=== PATIENT | female | born 1965 | race Caucasian/White ===

== ENCOUNTER 2016-11-27 20:03 | Inpatient (IN) | payer MEDICAID ==
[~2016-11-27] VITALS: Ht 154.9 cm; Wt 80.4 kg
[2016-11-27] MEDS ORDERED: SODIUM CHLORIDE 0.9% 1,000ML IVBOLUS ONE (20:30)
[2016-11-27] MEDS ORDERED: SODIUM CHLORIDE FLUSH 10ML SYR IVF ONE (20:30)
[2016-11-27] MEDS ORDERED: ONDANSETRON 2MG/ML, 2ML IVPush ONE (20:30)
[2016-11-27 20:44] LABS: HEMOGLOBIN 12.6 g/dL (11.7-16.4)
[2016-11-27] MEDS ORDERED: ONDANSETRON 2MG/ML, 2ML ONE (20:50)
[2016-11-27 20:53] LABS: BLOOD UREA NITROGEN 11 mg/dL (7-18)
[2016-11-27 20:57] LABS: ASPARTATE AMINO TRANSFERASE 15 U/L (15-37)
[2016-11-27] MEDS ORDERED: POTASSIUM CHLORIDE 20 MEQ TAB.ER.PRT ONE (21:23)
[2016-11-27] MEDS ORDERED: POTASSIUM CHLORIDE 20 MEQ TAB.ER.PRT PO ONE (21:30)
[2016-11-27] MEDS ORDERED: CEFTRIAXONE PMX 1GM/50ML 50 ML ONE (23:00)
[2016-11-27] MEDS ORDERED: CEFTRIAXONE PMX 1GM/50ML 50 ML IV ONE (23:00)
[2016-11-28] MEDS ORDERED: PHENAZOPYRIDINE 200 MG TABLET PO PRN (00:30)
[2016-11-28] MEDS ORDERED: HYDROcodone/APAP 5/325 TABLET PO PRN (00:30)
[2016-11-28] MEDS ORDERED: ONDANSETRON 2MG/ML, 2ML IVP PRN (00:30)
[2016-11-28] MEDS ORDERED: DOCUSATE 100 MG CAPSULE PO PRN (00:30)
[2016-11-28] MEDS ORDERED: POLYETHYLENE GLYCOL 17 GM PACKET PO PRN (00:30)
[2016-11-28] MEDS ORDERED: MORPHINE SULFATE 4 MG/ML, 1ML IVPush PRN (00:30)
[2016-11-28] MEDS ORDERED: ZOLPIDEM 5MG TABLET PO PRN (00:30)
[2016-11-28] MEDS ORDERED: BISACODYL 10 MG SUPP PR PRN (00:30)
[2016-11-28 01:00] VITALS: BP 103/71
[2016-11-28] MEDS: NS + 20MEQ KCL 1,000 ML IV SCH ×3 (01:38→17:14)
[2016-11-28] MEDS: ACETAMINOPHEN 325 MG TABLET PO PRN ×2 (01:56→17:17)
[2016-11-28 04:21] VITALS: BP 98/66
[2016-11-28 06:29] VITALS: BP 106/72
[2016-11-28 06:35] LABS: BLOOD UREA NITROGEN 12 mg/dL (7-18)
[2016-11-28 06:40] LABS: HEMOGLOBIN 10.6 g/dL (11.7-16.4)
[2016-11-28] MEDS: ENOXAPARIN 40 MG/0.4 ML SQ SCH (08:00)
[2016-11-28] MEDS: NICOTINE 21 MG/24 HR PATCH.TD24 TD SCH (08:01)
[2016-11-28 15:30] VITALS: BP 104/66
[2016-11-28 18:34] VITALS: BP 119/77
[2016-11-28] MEDS: CEFTRIAXONE PMX 1GM/50ML 50 ML IV SCH (22:41)
[2016-11-29] MEDS: NS + 20MEQ KCL 1,000 ML IV SCH (01:45)
[2016-11-29 03:05] VITALS: BP 123/83
[2016-11-29] MEDS: ACETAMINOPHEN 325 MG TABLET PO PRN ×2 (03:17→16:17)
[2016-11-29 05:38] LABS: BLOOD UREA NITROGEN 4 mg/dL (7-18)
[2016-11-29] MEDS: ENOXAPARIN 40 MG/0.4 ML SQ SCH (07:55)
[2016-11-29] MEDS: POTASSIUM CHLORIDE 20 MEQ TAB.ER.PRT PO SCH ×2 (07:55→16:17)
[2016-11-29] MEDS: NICOTINE 21 MG/24 HR PATCH.TD24 TD SCH (07:55)
[2016-11-29 09:07] VITALS: BP 120/80
[2016-11-29] MEDS: CEFTRIAXONE PMX 1GM/50ML 50 ML IV SCH ×2 (12:32→23:26)
[2016-11-29 13:30] VITALS: BP 113/81
[2016-11-29] MEDS ORDERED: MAGNESIUM SULFATE PMX 2GM/50ML 50 ML IV ONE (13:30)
[2016-11-29 19:59] VITALS: BP 116/80
[2016-11-30 04:01] VITALS: BP 135/84
[2016-11-30 05:21] LABS: BLOOD UREA NITROGEN 4 mg/dL (7-18)
[2016-11-30] MEDS: POTASSIUM CHLORIDE 20 MEQ TAB.ER.PRT PO SCH (07:32)
[2016-11-30] MEDS: ENOXAPARIN 40 MG/0.4 ML SQ SCH (07:32)
[2016-11-30] MEDS: NICOTINE 21 MG/24 HR PATCH.TD24 TD SCH (07:32)
[2016-11-30 09:52] VITALS: BP 107/75
[2016-11-30] MEDS: CEFTRIAXONE PMX 1GM/50ML 50 ML IV SCH ×2 (11:12→22:30)
[2016-11-30 15:05] VITALS: BP 110/70
[2016-11-30 19:40] VITALS: BP 117/78
[2016-12-01 02:50] VITALS: BP 111/74
[2016-12-01 06:17] LABS: BLOOD UREA NITROGEN 6 mg/dL (7-18)
[2016-12-01] MEDS: ENOXAPARIN 40 MG/0.4 ML SQ SCH (07:40)
[2016-12-01] MEDS: NICOTINE 21 MG/24 HR PATCH.TD24 TD SCH (07:41)
[2016-12-01 09:32] VITALS: BP 114/74
[2016-12-01] MEDS: CEFTRIAXONE PMX 1GM/50ML 50 ML IV SCH ×2 (11:29→23:03)
[2016-12-01 15:19] VITALS: BP 123/84
[2016-12-01 19:48] VITALS: BP 120/86
[2016-12-02 01:51] VITALS: BP 134/90
[2016-12-02 06:19] LABS: HEMOGLOBIN 11.7 g/dL (11.7-16.4)
[2016-12-02 06:26] LABS: ASPARTATE AMINO TRANSFERASE 30 U/L (15-37); BLOOD UREA NITROGEN 8 mg/dL (7-18)
[2016-12-02 08:20] VITALS: BP 125/85
[2016-12-02] MEDS: ENOXAPARIN 40 MG/0.4 ML SQ SCH (09:44)
[2016-12-02] MEDS: NICOTINE 21 MG/24 HR PATCH.TD24 TD SCH (09:45)
[2016-12-02] MEDS: CEFTRIAXONE PMX 1GM/50ML 50 ML IV SCH (11:51)
[2016-12-02 14:35] VITALS: BP 120/93
[2016-12-02] MEDS ORDERED: CEFT1FRO2 IV (17:00)
== END 2016-12-02 17:57 | disposition home or self-care (01) | DRG 690 ==
LOC: ED 23:07 → 3NE 23:08 → SUATTDRO 23:21 → ED 23:27
PROC: 0T9B70Z Drainage of Bladder with Drainage Device, Via Natural or Artificial Opening (ICD-10-PCS; principal; 2016-11-27)
PROC: 02HV33Z Insertion of Infusion Device into Superior Vena Cava, Percutaneous Approach (ICD-10-PCS; 2016-12-02)
PROC: B548ZZA Ultrasonography of Superior Vena Cava, Guidance (ICD-10-PCS; 2016-12-02)
DX: N10 Acute pyelonephritis (principal); E87.1 Hypo-osmolality and hyponatremia; R65.10 Systemic inflammatory response syndrome (SIRS) of non-infectious origin without acute organ dysfunction; F17.210 Nicotine dependence, cigarettes, uncomplicated; E87.6 Hypokalemia
CPT/HCPCS: 36415; 36569; 74176; 76937; 77001; 80048; 80053; 81001; 83690; 83735; 85025; 85651; 86140; 87086; 87324; 96361; 96365; 96375; J0696; J1650; J2405; J3480; C1751; J3475; J7030

== ENCOUNTER 2018-08-26 07:17 | Emergency (ER) | payer MEDICAID ==
[~2018-08-26] VITALS: Ht 154.9 cm; Wt 112.0 kg
[~2018-08-26 07:17] MED LIST: CEFT1FRO2 IV
[2018-08-26] MEDS ORDERED: ONDANSETRON ODT 4 MG ONE (07:56)
[2018-08-26] MEDS ORDERED: KETOROLAC 30 MG/1 ML ONE (07:57)
[2018-08-26] MEDS: ONDANSETRON ODT 4 MG PO ONE (08:02)
[2018-08-26] MEDS: KETOROLAC 30 MG/1 ML IM ONE (08:02)
--- NOTE | 2018-08-26 08:05 | NUR ---
PT SLEEPING WILL RESPOND TO VERBAL STIMULI NEEDS REPEATED QUESTIONING AND ASKED TO SPEEK UP IN HER RESPONSES
[2018-08-26 08:11] LABS: BASOPHILS # (AUTO) 0.08 x10^3/uL (0-0.1); BASOPHILS % (AUTO) 1 % (0-1); EOSINOPHILS % (AUTO) 0 % (1-7); LYMPHOCYTES # (AUTO) 2.58 x10^3/uL (1-3.4); LYMPHOCYTES % (AUTO) 29 % (22-44); MD NO; MEAN CORPUSCULAR HEMOGLOBIN 31.9 pg (27.0-34.8); MEAN CORPUSCULAR HGB CONC 33.7 g/dL (32.4-35.8); MEAN CORPUSCULAR VOLUME 94.7 fL (80-100); MEAN PLATELET VOLUME 7.4 fL (7.4-10.4); MONOCYTES # (AUTO) 0.35 x10^3/uL (0.2-0.8); MONOCYTES % (AUTO) 4 % (2-9); NEUTROPHILS # (AUTO) 5.87 x10^3/uL (1.8-6.8); NEUTROPHILS % (AUTO) 66 % (42-75); PLATELET COUNT 256 x10^3/uL (130-400); RED BLOOD COUNT 4.07 x10^6/uL (3.82-5.3); RED CELL DISTRIBUTION WIDTH 14.1 % (9.6-15.2)
[2018-08-26 08:23] LABS: ALBUMIN 3.4 g/dL (3.4-5.0); ANION GAP 7 mmol/L (5-15); CALCIUM 8.4 mg/dL (8.5-10.1); CHLORIDE 107 mmol/L (98-107); CREATININE 0.56 mg/dL (0.55-1.02)
[2018-08-26 08:59] LABS: MICROSCOPIC AUTO
[2018-08-26 09:00] LABS: CULTURE INDICATED? NO
[2018-08-26 09:30] VITALS: BP 126/71
== END 2018-08-26 10:39 | disposition home or self-care (01) ==
LOC: ED 08:55
DX: N20.1 Calculus of ureter (principal); F17.210 Nicotine dependence, cigarettes, uncomplicated
CPT/HCPCS: 36415; 74176; 80048; 81001; 82040; 85025; 96372; 99284; J1885; Q0162